=== PATIENT | male | born 1985 | race Caucasian/White ===

== ENCOUNTER → 2017-10-14 | Outpatient (CLI) | payer MEDICAID ==
[2017-10-14 11:21] LABS: ALT 70 U/L (21-72); AST 32 U/L (17-59); Albumin 4.8 g/dL (3.5-5.0); Alkaline Phosphatase 92 U/L (38-126); Anion Gap 15 mmol/L; Blood Urea Nitrogen 16 mg/dL (9-20); Calcium 10.2 mg/dL (8.4-10.2); Carbon Dioxide 30 mmol/L (22-30); Chloride 101 mmol/L (98-107); Cholesterol 188 mg/dL (<200); Glucose 107 mg/dL (74-99); HDL Cholesterol 42 mg/dL (40-60); LDL Cholesterol,Calculated 120 mg/dL (0-99); Potassium 4.7 mmol/L (3.5-5.1); Sodium 146 mmol/L (137-145); Total Bilirubin 0.4 mg/dL (0.2-1.3); Total Protein 7.5 g/dL (6.3-8.2); Triglycerides 130 mg/dL (<150)
--- NOTE | 2017-10-14 13:20 | ECHOF ---
Referral Reason:R07.89 other chest pain MEASUREMENTS -------- HEIGHT: 185.4 cm WEIGHT: 129.3 kg BP: 147/90 RVIDd: 3.3 cm (< 3.3) IVSd: 1.2 cm (0.6 - 1.1) LVIDd: 5.5 cm (3.9 - 5.3) LVPWd: 1.2 cm (0.6 - 1.1) IVSs: 1.7 cm LVIDs: 3.1 cm LVPWs: 1.7 cm LAESV Index (A-L): 21.83 ml/m Ao Diam: 3.4 cm (2.0 - 3.7) AV Cusp: 2.5 cm (1.5 - 2.6) LA Diam: 3.1 cm (2.7 - 3.8) EPSS: 0.7 cm MV E Ramon: 0.83 m/s MV DecT: 188 ms MV A Ramon: 0.73 m/s MV E/A Ratio: 1.14 RAP: 5.00 mmHg RVSP: 24.52 mmHg MV EF SLOPE: 60.03 mm/s (70 - 150) MV EXCURSION: 2.08 cm (> 18.000) FINDINGS -------- Sinus rhythm. This was a technically adequate study. The left ventricular size is normal. There is mild concentric left ventricular hypertrophy. Overa ll left ventricular systolic function is normal with, an EF between 65 - 70 %. The right ventricle is mildly enlarged. Normal LA size by volume 22+/-6 ml/m2. The right atrium is normal in size. Aortic valve is trileaflet and is mildly thickened. There is no evidence of aortic regurgitation. There is no evidence of aortic stenosis. The mitral valve leaflets are mildly thickened. There is trace to mild mitral regurgitation. Trace tricuspid regurgitation present. Right ventricular systolic pressure is normal at < 35 mmHg. There is no evidence of pulmonary hypertension. The pulmonic valve is normal. The aortic root size is normal. Normal inferior vena cava with normal inspiratory collapse consistent with estimated right atrial pre ssure of 5 mmHg. There is no pericardial effusion. CONCLUSIONS -------- 1. Sinus rhythm. 2. This was a technically adequate study. 3. The left ventricular size is normal. 4. There is mild concentric left ventricular hypertrophy. 5. Overall left ventricular systolic function is normal with, an EF between 65 - 70 %. 6. The right ventricle is mildly enlarged. 7. Normal LA size by volume 22+/-6 ml/m2. 8. Aortic valve is trileaflet and is mildly thickened. 9. The mitral valve leaflets are mildly thickened. 10. There is trace to mild mitral regurgitation. 11. Trace tricuspid regurgitation present. 12. Right ventricular systolic pressure is normal at < 35 mmHg. 13. There is no evidence of pulmonary hypertension. 14. The aortic root size is normal. 15. There is no pericardial effusion. CLINICAL SAFETY SPECIALIST: Reggie Benz RDCS
--- NOTE | 2017-10-14 13:54 | ECHOS ---
STRESS ECHOCARDIOGRAM DATE OF SERVICE: 10/14/2017 INDICATIONS: Chest pain. MEDICATIONS: Amlodipine, losartan BASELINE HEART RATE: 89 BASELINE BLOOD PRESSURE: 147/90 MAXIMUM HEART RATE: 163 MAXIMUM BLOOD PRESSURE: 173/55 85% MPHR: 158 100% MPHR: 186 METS: 11.1 MAXIMUM STAGE REACHED: III TOTAL EXERCISE TIME: 9:31 CLINICAL INFORMATION: STRESS DATA: Pretesting physical examination showed a heart rate of 89, pressure is 147/90 mmHg. Baseline EKG showed sinus mechanism. The patient exercised on the treadmill according to Steven protocol for a total of 9 minutes and achieved 10 of METS with max heart rate was 163, which is about 87% of maximum predicted heart rate. Maximum blood pressure was 173/55 mmHg. Clinically, the patient did not have any symptoms of chest pain or discomfort during the testing or in the recovery. The EKG did not show any significant ST or T-wave abnormalities concerning for ischemia. ECHOCARDIOGRAM IMAGES: On echocardiogram images from parasternal long axis, parasternal short axis view, apical 4 chamber and apical 2 chamber view were obtained as the baseline images, at the peak heart rate, as well as on recovery. The echocardiogram images showed good augmentation in the left ventricular systolic function. CONCLUSION: 1. Excellent exercise tolerance. 2. Normal EKG in response to exercise. 3. Normal echocardiogram in response to exercise as well. MMODL / IJN: [id number] /
== END | disposition home or self-care (01) ==
LOC: RADNMMAIN 09:12
PROVIDERS: ATTEND Internal Medicine Interventional Cardiology
DX: R07.89 Other chest pain (principal); I10 Essential (primary) hypertension; Z88.0 Allergy status to penicillin
CPT/HCPCS: 93306; 93351; 80061; 80053; 36415; Q9950

== ENCOUNTER → 2017-11-22 | Outpatient (CLI) | payer MEDICAID ==
--- NOTE | 2017-11-22 16:36 | CONS ---
CONSULTATION REASON FOR CONSULTATION: Sleep apnea. A 32-year-old male patient [facility] due to concern for sleep apnea. The patient snores loud and he has been feeling fatigue and tired during the day. 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 He goes to bed around 11 p.m., wakes up 6:00 a.m. in the morning. He snores and he has excessive fatigue and sleepiness during the day. His current [place] score is 4. Does not fall asleep while driving. No ever been involved in a motor vehicle accidents because of feeling drowsy or sleepy. His weight is up in the order of 10 pounds over the past 1 year and a total of 30 pounds over the past 5 years. He prefers to sleep on his side. He cannot sleep on his back. He denies waking up choking or gasping for air. No restlessness lower extremities, no nightmares, no parasomnias noted. On weekends he goes to bed around 11 p.m., wakes up at 9 a.m. in the morning. He has been having increased blood pressure and he has been on 2 different antihypertensive medication for now known in the care of Dr. Hayden. No other complaints otherwise for now. PAST MEDICAL HISTORY: Hypertension, obesity. PAST SURGICAL HISTORY: Includes inguinal hernia repair bilaterally. DRUG ALLERGIES: PENICILLIN. OUTPATIENT MEDICATION LIST: Includes Norvasc 10 mg p.o. daily, losartan hydrochlorothiazide 1 tablet a day. SOCIAL HISTORY: Nonsmoker. No history of alcohol. No history of IV drugs. Drinks 3 cups of coffee and caffeinated soda either Pepsi or diet Coke every day. FAMILY HISTORY: Negative for sleep apnea. Yet there is a from early cardiovascular complication in his father who at age of 35 and grandfather at the age of 42 from CVA. REVIEW OF SYSTEMS: 12-point review of system was done. Positive findings are mentioned above in history of present illness. Of significance is the absence of any insomnia. No history of grinding. No history of sleepwalking. No dry mouth. No anxiety or panic attacks. No palpitation or heartburn. No restlessness lower extremities. No claustrophobia. No sexual dysfunction. No history of depression. No history of any memory deficits or concentration problems. PHYSICAL EXAMINATION: BP is 135/99, pulse 89, respirations 16, temp 98.1, saturation 96% on room air. Height is 6 foot 1, weight is 289, BMI 38.1. Neck size 18-1/2 inches. GENERAL APPEARANCE: Calm, comfortable. HEAD: Atraumatic, normocephalic. NECK: Supple. There is no JVD. No goiter or neck masses. Mallampati class IV. LUNGS: Clear to auscultation. HEART: Sounds regular rhythm. Normal S1, S2. No S3. No murmurs. ABDOMEN: Soft, nontender. No organomegaly. EXTREMITIES: No edema. No cyanosis or clubbing. NEUROLOGIC: Alert and oriented x3. There are no focal neurological deficits. PSYCHIATRIC: Negative for anxiety or depression. SKIN: Negative for any wounds or ulceration. IMPRESSION: 1. Loud snoring. 2. Chronic tiredness and fatigue and sleepiness. [place] score of 4. 3. Obesity with a BMI of 38.1. 4. Hypertension, currently on various antihypertensive medications with good pressure control. PLAN: 1. Encourage weight loss. 2. Implement good sleep hygiene measures. 3. Continues sleeping on side. 4. Proceed with a screening polysomnogram to look for any significant sleep apnea that needs to be further treated in the future. MMODL / IJN: [id number] /
== END | disposition home or self-care (01) ==
LOC: SLEEP 13:55
PROVIDERS: ATTEND Internal Medicine Critical Care Medicine
DX: R06.83 Snoring (principal); R53.83 Other fatigue; E66.9 Obesity, unspecified; I10 Essential (primary) hypertension; Z79.899 Other long term (current) drug therapy; Z68.38 Body mass index [BMI] 38.0-38.9, adult; Z88.0 Allergy status to penicillin
CPT/HCPCS: 99211

== ENCOUNTER → 2023-06-08 | Outpatient (CLI) | payer MEDICAID ==
[2023-06-08 17:00] LABS: ALT 46 U/L (4-49); AST 32 U/L (17-59); African American GFR (CKD) >90 (>60 ml/min/1.73 sqM); Albumin 4.6 g/dL (3.5-5.0); Albumin/Globulin Ratio 1.5; Alkaline Phosphatase 83 U/L (38-126); Anion Gap 9 mmol/L; Blood Urea Nitrogen 15 mg/dL (9-20); Calcium 9.7 mg/dL (8.4-10.2); Carbon Dioxide 27 mmol/L (22-30); Chloride 102 mmol/L (98-107); Globulin 3.1 g/dL; Glucose 161 mg/dL (74-99); Non-African American GFR(CKD) >90 (>60 ml/min/1.73 sqM); Potassium 4.4 mmol/L (3.5-5.1); Sodium 138 mmol/L (137-145); Total Bilirubin 0.5 mg/dL (0.2-1.3); Total Protein 7.7 g/dL (6.3-8.2)
[2023-06-08 19:54] LABS: Basophils # (A) 0.06 X 10*3/uL (0.00-0.10); Basophils % (A) 0.6 %; Eosinophils % (A) 2.1 %; HCT 46.4 % (39.6-50.0); HGB 14.9 g/dL (13.0-17.0); Lymphocytes # (A) 2.34 X 10*3/uL (0.90-5.00); Lymphocytes % (A) 24.7 %; MCH 29.2 pg (27.0-32.0); MCHC 32.1 g/dL (32.0-37.0); MCV 90.8 FL (80.0-97.0); Mean Platelet Volume 11.3 FL (9.5-12.2); Monocytes # (A) 0.79 X 10*3/uL (0.20-1.00); Monocytes % (A) 8.4 %; NRBC Per 100 WBC 0 X 10*3/uL (0.00-0.01); Neutrophils # (A) 6.02 X 10*3/uL (1.80-7.70); Neutrophils % (A) 63.7 %; Platelet Count 244 X 10*3/uL (140-440); RBC 5.11 X 10*6/uL (4.40-5.60); RDW 12.5 % (11.5-14.5); WBC 9.46 X 10*3/uL (4.50-10.00)
== END | disposition home or self-care (01) ==
LOC: LABWHC1 15:05
PROVIDERS: ATTEND Family Medicine
DX: Z00.00 Encounter for general adult medical examination without abnormal findings (principal); I10 Essential (primary) hypertension; E55.9 Vitamin D deficiency, unspecified
CPT/HCPCS: 36415; 80053; 82306; 82465; 84478; 85025

== ENCOUNTER 2024-02-20 13:25 | Inpatient (IN) | payer MEDICAID ==
[2024-02-20 14:06] LABS: Basophils % (A) 0 %; Eosinophils % (A) 0 %; HCT 43.9 % (39.0-53.0); HGB 14.5 gm/dL (13.0-17.5); Lymphocytes # (A) 1.5 k/uL (1.0-4.8); Lymphocytes % (A) 9 %; MCH 29.9 pg (25.0-35.0); MCHC 32.9 g/dL (31.0-37.0); MCV 90.9 fL (80.0-100.0); Mean Platelet Volume 8.5; Monocytes # (A) 0.7 k/uL (0-1.0); Monocytes % (A) 4 %; Neutrophils # (A) 13.8 k/uL (1.3-7.7); Neutrophils % (A) 85 %; Platelet Count 281 k/uL (150-450); RBC 4.84 m/uL (4.30-5.90); RDW 12.7 % (11.5-15.5); WBC 16.2 k/uL (3.8-10.6)
[2024-02-20 14:16] LABS: ALT 59 U/L (4-49); AST 27 U/L (17-59); African American GFR (CKD) >90 (>60 ml/min/1.73 sqM); Albumin 4.8 g/dL (3.5-5.0); Alkaline Phosphatase 77 U/L (38-126); Anion Gap 12 mmol/L; Blood Urea Nitrogen 22 mg/dL (9-20); Calcium 9.9 mg/dL (8.4-10.2); Carbon Dioxide 26 mmol/L (22-30); Chloride 97 mmol/L (98-107); Glucose 302 mg/dL (74-99); Lipase 59 U/L (23-300); Magnesium 2.2 mg/dL (1.6-2.3); Non-African American GFR(CKD) 90 (>60 ml/min/1.73 sqM); Potassium 4.5 mmol/L (3.5-5.1); Sodium 135 mmol/L (137-145); Total Bilirubin 0.5 mg/dL (0.2-1.3); Total Protein 7.7 g/dL (6.3-8.2)
[2024-02-20 14:24] LABS: Prothrombin Time 10.8 sec (10.0-12.5)
--- NOTE | 2024-02-20 15:44 | XR ---
EXAMINATION TYPE: XR chest 2V DATE OF EXAM: 02/20/2024 2:21 PM COMPARISON: Chest radiographs from 11/19/2013 TECHNIQUE: XR chest 2V Frontal and lateral views of the chest. CLINICAL INDICATION:Male, 38 years old with history of Chest Pain; FINDINGS: Lungs/Pleura: There is no evidence of pleural effusion, focal consolidation, or pneumothorax. Pulmonary vascularity: Unremarkable. Heart/mediastinum: Cardiomediastinal silhouette is unremarkable. Musculoskeletal: No acute osseous pathology. IMPRESSION: No acute cardiopulmonary disease/process. [facility], , 02/20/2024 3:41 PM
--- NOTE | 2024-02-20 16:22 | ED ---
General Adult HPI - General Chief complaint: Chest Pain Stated complaint: Chest Pain,Hypertension Time Seen by Provider: 02/20/24 13:39 Source: patient Mode of arrival: ambulatory Limitations: no limitations - History of Present Illness Initial comments: 38-year-old male presents the emergency department reporting chest pain, nausea and shortness of breath. He was at work ambulating down the halls when he had a perez of nausea, shortness of breath and tightness in his chest. He felt like he was going to pass out if he did not sit down. He does admit to a recent upper respiratory infection. He denies having history of cardiac disease. He is over weight with a history of hypertension. States that previously he was not compliant with his blood pressure medications but he is now. He denies diabetes. Chest pain has improved at this time. He denies calf pain or swelling. No history of DVT or PE. He has never had a cardiac workup. Denies fevers. No other alleviating, precipitating or modifying factors - Related Data Home Medications Medication Instructions Recorded Confirmed Promethazine/Dextromethorphan 5 ml PO Q4H PRN 02/20/24 02/20/24 [Promethazine-Dm 6.25-15 mg/5Ml] Triamterene/Hydrochlorothiazid 1 tab PO DAILY 02/20/24 02/20/24 [Triamterene-Hctz 37.5-25 mg Tb] Previous Rx's Medication Instructions Recorded amLODIPine [Norvasc] 10 mg PO DAILY #30 tab 02/21/24 metFORMIN HCL [Glucophage] 500 mg PO BID #60 tab 02/21/24 Aspirin 81 mg PO DAILY #30 tab 02/23/24 Atorvastatin [Lipitor] 40 mg PO HS #30 tab 02/23/24 Isosorbide Mononitrate ER [Imdur] 30 mg PO DAILY #30 tab 02/23/24 Losartan [Cozaar] 50 mg PO BID #60 tab 02/23/24 Metoprolol Succinate (ER) [Toprol 50 mg PO DAILY #30 tab 02/23/24 XL] Allergies Allergy/AdvReac Type Severity Reaction Status Date / Time Penicillins Allergy Unknown Verified 02/20/24 16:25 Childhood Review of Systems ROS Statement: Those systems with pertinent positive or pertinent negative responses have been documented in the HPI. ROS Other: All systems not noted in ROS Statement are negative. Past Medical History Past Medical History: Asthma, Hypertension Additional Past Medical History / Comment(s): BRONCHITIS History of Any Multi-Drug Resistant Organisms: None Reported Past Surgical History: Hernia Repair Past Psychological History: No Psychological Hx Reported Past Alcohol Use History: Occasional Past Drug Use History: None Reported - Past Family History Father Family Medical History: Congestive Heart Failure (CHF) Additional Family Medical History / Comment(s): at 36 uncertain cause, caridac complication related General Exam Limitations: no limitations General appearance: alert, other (Fatigued) Head exam: Present: atraumatic, normocephalic, normal inspection Eye exam: Present: normal appearance, PERRL, EOMI. Absent: scleral icterus, conjunctival injection, periorbital swelling ENT exam: Present: normal exam, mucous membranes moist Neck exam: Present: normal inspection. Absent: tenderness, meningismus, lymphadenopathy Respiratory exam: Present: normal lung sounds bilaterally. Absent: respiratory distress, wheezes, rales, rhonchi, stridor Cardiovascular Exam: Present: normal rhythm, tachycardia, normal heart sounds. Absent: systolic murmur, diastolic murmur, rubs, gallop, clicks GI/Abdominal exam: Present: soft, normal bowel sounds. Absent: distended, tenderness, guarding, rebound, rigid Extremities exam: Present: normal inspection, full ROM, normal capillary refill. Absent: tenderness, pedal edema, joint swelling, calf tenderness Back exam: Present: normal inspection Neurological exam: Present: alert, oriented X3, CN II-XII intact Psychiatric exam: Present: normal affect, normal mood Skin exam: Present: warm, dry, intact, normal color. Absent: rash Course Vital Signs 02/20/24 02/20/24 02/20/24 13:32 15:18 17:10 Temperature 97.8 F Pulse Rate 109 H 99 89 Respiratory 20 20 18 Rate Blood Pressure 205/124 153/102 159/95 O2 Sat by Pulse 98 98 97 Oximetry 02/20/24 02/20/24 20:34 21:03 Temperature Pulse Rate 100 101 H Respiratory 19 20 Rate Blood Pressure 164/111 166/99 O2 Sat by Pulse 96 95 Oximetry Medical Decision Making - Medical Decision Making Was pt. sent in by a medical professional or institution (, PA, [employer]MER, urgent care, hospital, or penitentiary...) When possible be specific @ -No Did you speak to anyone other than the patient for history (EMS, parent, family, police, friend...)? What history was obtained from this source @ -Spoke with the for history Did you review nursing and triage notes (agree or disagree)? Why? @ -I reviewed and agree with nursing and triage notes Were old charts reviewed (outside hosp., previous admission, EMS record, old EKG, old radiological studies, urgent care reports/EKG's, penitentiary records)? Report findings @ -No old charts were reviewed Differential Diagnosis (chest pain, altered mental status, abdominal pain women, abdominal pain men, vaginal bleeding, weakness, fever, dyspnea, syncope, headache, dizziness, GI bleed, back pain, seizure, CVA, palpatations, mental health, musculoskeletal)? @ -Differential Chest Pain: Stable Angina, Unstable Angina, STEMI, NSTEMI Aortic Dissection, Pneumothorax, Musculoskeletal, Esophageal Spasm GERD, Cholecystitis, Pancreatitis, Zoster, this is not meant to be an all-inclusive list. EKG interpreted by me (3pts min.). @ -Yes and demonstrates sinus tachycardia with a rate of 101. SD interval 125. QRS 105. QTc of 420. Q wave in lead III with inverted T wave. No ST elevation X-rays interpreted by me (1pt min.). @ -Yes and demonstrates no acute process CT interpreted by me (1pt min.). @ -None done U/S interpreted by me (1pt. min.). @ -None done What testing was considered but not performed or refused? (CT, X-rays, U/S, labs)? Why? @ -None What meds were considered but not given or refused? Why? @ -None Did you discuss the management of the patient with other professionals (professionals i.e. , PA, [employer]MER, lab, RT, psych nurse, social and political studies professor, banquet captain, teacher, naval gunfire liaison officer, counter caser)? Give summary @ -Spoke with Melony from [facility] Was smoking cessation discussed for >3mins.? @ -No Was critical care preformed (if so, how long)? @ -No Were there social determinants of health that impacted care today? How? (H omelessness, low income, unemployed, alcoholism, drug addiction, transportation, low edu. Level, literacy, decrease access to med. care, long term, rehab)? @ -No Was there de-escalation of care discussed even if they declined (Discuss DNR or withdrawal of care, Hospice)? DNR status @ -No What co-morbidities impacted this encounter? (DM, HTN, Smoking, COPD, CAD, Cancer, CVA, ARF, Chemo, Hep., AIDS, mental health diagnosis, sleep apnea, morbid obesity)? @ -Hypertension, obesity Was patient admitted / discharged? Hospital course, mention meds given and route, prescriptions, significant lab abnormalities, going to OR and other pertinent info. @ -Upon arrival patient seen and evaluated in room 5. Thorough history and physical exam was performed. IV access was established. Laboratory studies w ere conducted. EKG was performed. Chest x-ray was performed. Results are discussed with the patient. Patient does have several risk factors including possible diabetes which would be a new diagnosis. I did recommend admission for cardiology consultation. Patient was agreeable to this. I called and spoke with Melony from [facility] for admission Undiagnosed new problem with uncertain prognosis? @ -No Drug Therapy requiring intensive monitoring for toxicity (Heparin, Nitro, Insulin, Cardizem)? @ -No Were any procedures done? @ -No Diagnosis/symptom? @ -Acute chest pain, hyperglycemia Acute, or Chronic, or Acute on Chronic? @ -Acute Uncomplicated (without systemic symptoms) or Complicated (systemic symptoms)? @ -Complicated Side effects of treatment? @ -No Exacerbation, Progression, or Severe Exacerbation? @ -No Poses a threat to life or bodily function? How? (Chest pain, [place], AR, pneumonia, PE, COPD, DKA, ARF, appy, cholecystitis, CVA, Diverticulitis, Homicidal, Suicidal, threat to staff... and all critical care pts) @ -Yes this patient symptoms may represent ACS - Lab Data Result diagrams: 02/21/24 04:30 02/21/24 04:30 Lab Results 02/20/24 02/20/24 02/20/24 Range/Units 13:59 13:59 13:59 WBC 16.2 H (3.8-10.6) k/uL RBC 4.84 (4.30-5.90) m/uL Hgb 14.5 (13.0-17.5) gm/dL Hct 43.9 (39.0-53.0) % MCV 90.9 (80.0-100.0) fL MCH 29.9 (25.0-35.0) pg MCHC 32.9 (31.0-37.0) g/dL RDW 12.7 (11.5-15.5) % Plt Count 281 (150-450) k/uL MPV 8.5 Neutrophils % 85 % Lymphocytes % 9 % Monocytes % 4 % Eosinophils % 0 % Basophils % 0 % Neutrophils # 13.8 H (1.3-7.7) k/uL Lymphocytes # 1.5 (1.0-4.8) k/uL Monocytes # 0.7 (0-1.0) k/uL Eosinophils # 0.0 (0-0.7) k/uL Basophils # 0.0 (0-0.2) k/uL PT 10.8 (10.0-12.5) sec INR 1.0 (<1.2) APTT 26.0 (22.0-30.0) sec D-Dimer (<0.60) mg/L FEU Sodium 135 L (137-145) mmol/L Potassium 4.5 (3.5-5.1) mmol/L Chloride 97 L (98-107) mmol/L Carbon Dioxide 26 (22-30) mmol/L Anion Gap 12 mmol/L BUN 22 H (9-20) mg/dL Creatinine 1.04 (0.66-1.25) mg/dL Est GFR (CKD-EPI)AfAm >90 (>60 ml/min/1.73 sqM) Est GFR (CKD-EPI)NonAf 90 (>60 ml/min/1.73 sqM) Glucose 302 H (74-99) mg/dL Estimated Ave Glu mg/dL mg/dL Hemoglobin A1c (<=6.0) % Calcium 9.9 (8.4-10.2) mg/dL Magnesium 2.2 (1.6-2.3) mg/dL Total Bilirubin 0.5 (0.2-1.3) mg/dL AST 27 (17-59) U/L ALT 59 H (4-49) U/L Alkaline Phosphatase 77 (38-126) U/L Troponin I (0.000-0.034) ng/mL Total Protein 7.7 (6.3-8.2) g/dL Albumin 4.8 (3.5-5.0) g/dL Triglycerides (0.00-149.00) mg/dL Cholesterol (0.00-200.00) mg/dL LDL Cholesterol, Calc (0.0-131.0) mg/dL VLDL Cholesterol, Calc (5.00-40.00) mg/dL HDL Cholesterol (40.00-60.00) mg/dL Cholesterol/HDL Ratio Ratio Lipase 59 (23-300) U/L Influenza Type A (PCR) (Not Detectd) Influenza Type B (PCR) (Not Detectd) RSV (PCR) (Not Detectd) SARS-CoV-2 (PCR) (Not Detectd) 02/20/24 02/20/24 02/20/24 Range/Units 13:59 13:59 13:59 WBC (3.8-10.6) k/uL RBC (4.30-5.90) m/uL Hgb (13.0-17.5) gm/dL Hct (39.0-53.0) % MCV (80.0-100.0) fL MCH (25.0-35.0) pg MCHC (31.0-37.0) g/dL RDW (11.5-15.5) % Plt Count (150-450) k/uL MPV Neutrophils % % Lymphocytes % % Monocytes % % Eosinophils % % Basophils % % Neutrophils # (1.3-7.7) k/uL Lymphocytes # (1.0-4.8) k/uL Monocytes # (0-1.0) k/uL Eosinophils # (0-0.7) k/uL Basophils # (0-0.2) k/uL PT (10.0-12.5) sec INR (<1.2) APTT (22.0-30.0) sec D-Dimer 0.30 (<0.60) mg/L FEU Sodium (137-145) mmol/L Potassium (3.5-5.1) mmol/L Chloride (98-107) mmol/L Carbon Dioxide (22-30) mmol/L Anion Gap mmol/L BUN (9-20) mg/dL Creatinine (0.66-1.25) mg/dL Est GFR (CKD-EPI)AfAm (>60 ml/min/1.73 sqM) Est GFR (CKD-EPI)NonAf (>60 ml/min/1.73 sqM) Glucose (74-99) mg/dL Estimated Ave Glu mg/dL 200 mg/dL Hemoglobin A1c 8.6 H (<=6.0) % Calcium (8.4-10.2) mg/dL Magnesium (1.6-2.3) mg/dL Total Bilirubin (0.2-1.3) mg/dL AST (17-59) U/L ALT (4-49) U/L Alkaline Phosphatase (38-126) U/L Troponin I <0.012 (0.000-0.034) ng/mL Total Protein (6.3-8.2) g/dL Albumin (3.5-5.0) g/dL Triglycerides (0.00-149.00) mg/dL Cholesterol (0.00-200.00) mg/dL LDL Cholesterol, Calc (0.0-131.0) mg/dL VLDL Cholesterol, Calc (5.00-40.00) mg/dL HDL Cholesterol (40.00-60.00) mg/dL Cholesterol/HDL Ratio Ratio Lipase (23-300) U/L Influenza Type A (PCR) (Not Detectd) Influenza Type B (PCR) (Not Detectd) RSV (PCR) (Not Detectd) SARS-CoV-2 (PCR) (Not Detectd) 02/20/24 02/20/24 Range/Units 13:59 14:26 WBC (3.8-10.6) k/uL RBC (4.30-5.90) m/uL Hgb (13.0-17.5) gm/dL Hct (39.0-53.0) % MCV (80.0-100.0) fL MCH (25.0-35.0) pg MCHC (31.0-37.0) g/dL RDW (11.5-15.5) % Plt Count (150-450) k/uL MPV Neutrophils % % Lymphocytes % % Monocytes % % Eosinophils % % Basophils % % Neutrophils # (1.3-7.7) k/uL Lymphocytes # (1.0-4.8) k/uL Monocytes # (0-1.0) k/uL Eosinophils # (0-0.7) k/uL Basophils # (0-0.2) k/uL PT (10.0-12.5) sec INR (<1.2) APTT (22.0-30.0) sec D-Dimer (<0.60) mg/L FEU Sodium (137-145) mmol/L Potassium (3.5-5.1) mmol/L Chloride (98-107) mmol/L Carbon Dioxide (22-30) mmol/L Anion Gap mmol/L BUN (9-20) mg/dL Creatinine (0.66-1.25) mg/dL Est GFR (CKD-EPI)AfAm (>60 ml/min/1.73 sqM) Est GFR (CKD-EPI)NonAf (>60 ml/min/1.73 sqM) Glucose (74-99) mg/dL Estimated Ave Glu mg/dL mg/dL Hemoglobin A1c (<=6.0) % Calcium (8.4-10.2) mg/dL Magnesium (1.6-2.3) mg/dL Total Bilirubin (0.2-1.3) mg/dL AST (17-59) U/L ALT (4-49) U/L Alkaline Phosphatase (38-126) U/L Troponin I (0.000-0.034) ng/mL Total Protein (6.3-8.2) g/dL Albumin (3.5-5.0) g/dL Triglycerides 101.00 (0.00-149.00) mg/dL Cholesterol 208.00 H (0.00-200.00) mg/dL LDL Cholesterol, Calc 144.7 H (0.0-131.0) mg/dL VLDL Cholesterol, Calc 20.20 (5.00-40.00) mg/dL HDL Cholesterol 43.10 (40.00-60.00) mg/dL Cholesterol/HDL Ratio 4.83 Ratio Lipase (23-300) U/L Influenza Type A (PCR) Not Detected (Not Detectd) Influenza Type B (PCR) Not Detected (Not Detectd) RSV (PCR) Not Detected (Not Detectd) SARS-CoV-2 (PCR) Not Detected (Not Detectd) Disposition Clinical Impression: Chest pain, Hypertension, Cough, Hyperglycemia Disposition: ADMITTED IP TO THIS HOSP Condition: Stable Is patient prescribed a controlled substance at d/c from ED?: No Time of Disposition: 16:27 Decision to Admit Reason: Admit from EC Decision Date: 02/20/24 Decision Time: 16:27
[2024-02-20] MEDS ORDERED: ONDANSETRON 4 MG/2 ML VIAL IVP PRN (16:28)
[2024-02-20] MEDS ORDERED: ACETAMINOPHEN TAB 325 MG TAB PO PRN (16:28)
[2024-02-20] MEDS ORDERED: NALOXONE 0.4 MG/ML 1 ML VIAL IV PRN (16:28)
[2024-02-20] MEDS ORDERED: DEXTROSE 50% SYRINGE 50 ML IVP PRN ×2 (16:37)
[2024-02-20] MEDS: ASPIRIN 81 MG PO STA (16:47)
[2024-02-20] MEDS: SODIUM CHLORIDE 0.9% 1,000 ML IV SCH (16:47)
[2024-02-20] MEDS: INSULIN ASPART (NovoLOG) 100 UNIT/ML VIAL SQ SCH (17:09)
[2024-02-20] MEDS: IPRATROPIUM-ALBUTEROL 3 ML NEB INHALATION SCH (20:56)
[2024-02-20] MEDS: predniSONE 20 MG TAB PO SCH (23:16)
[2024-02-20] MEDS: LOSARTAN 50 MG TAB PO SCH (23:16)
[2024-02-20] MEDS: guaiFENesin-DM 100-10MG/5ML 10 ML CUP PO PRN (23:23)
[2024-02-21] MEDS ORDERED: IPRATROPIUM-ALBUTEROL 3 ML NEB INHALATION PRN (00:23)
[2024-02-21 08:35] LABS: Basophils # (A) 0.04 X 10*3/uL (0.00-0.10); Basophils % (A) 0.3 %; Eosinophils # (A) 0.02 X 10*3/uL (0.04-0.35); Eosinophils % (A) 0.1 %; HCT 42.9 % (39.6-50.0); HGB 14.2 g/dL (13.0-17.0); Lymphocytes # (A) 1.78 X 10*3/uL (0.90-5.00); Lymphocytes % (A) 13.3 %; MCH 29.8 pg (27.0-32.0); MCHC 33.1 g/dL (32.0-37.0); MCV 90.1 FL (80.0-97.0); Mean Platelet Volume 11.6 FL (9.5-12.2); Monocytes # (A) 0.75 X 10*3/uL (0.20-1.00); Monocytes % (A) 5.6 %; NRBC Per 100 WBC 0 X 10*3/uL (0.00-0.01); Neutrophils # (A) 10.74 X 10*3/uL (1.80-7.70); Platelet Count 267 X 10*3/uL (140-440); RBC 4.76 X 10*6/uL (4.40-5.60); RDW 12.6 % (11.5-14.5); WBC 13.42 X 10*3/uL (4.50-10.00)
[2024-02-21 08:45] LABS: ALT 55 U/L (10-49); AST 24 U/L (14-35); Albumin 4.4 g/dL (3.8-4.9); Albumin/Globulin Ratio 1.69 Ratio (1.60-3.17); Alkaline Phosphatase 93 U/L (41-126); Blood Urea Nitrogen 20.1 mg/dL (9.0-27.0); Calcium 9.6 mg/dL (8.7-10.3); Carbon Dioxide 27.1 mmol/L (21.6-31.8); Chloride 97 mmol/L (96-109); Globulin 2.6 g/dL (1.6-3.3); Glucose 281 mg/dL (70-110); Potassium 4.9 mmol/L (3.5-5.5); Sodium 135 mmol/L (135-145); Total Bilirubin 0.3 mg/dL (0.3-1.2)
[2024-02-21] MEDS: IPRATROPIUM-ALBUTEROL 3 ML NEB INHALATION SCH (09:44)
[2024-02-21] MEDS: amLODIPine 10 MG TAB PO SCH (09:46)
[2024-02-21] MEDS: TRIAMTERENE-HCTZ 37.5-25MG 1 EACH CAP PO SCH (09:46)
--- NOTE | 2024-02-21 09:50 | P.CRDCN ---
History of Present Illness Consult date: 02/21/24 Consult reason: chest pain History of present illness: This is a 38-year-old male patient with past medical history of hypertension, asthma. We have been asked to evaluate the patient for chest pain. Patient presented to the hospital due to chest pain, palpitations, dizziness and in general just not feeling well. Patient presented with blood pressure of 205/124. Last evening, patient only received losartan 50 mg. Blood pressure 159/118, heart rate 81, pulse ox 94% on room air. EKG: Sinus tachycardia 101 bpm Chest x-ray: No acute process Laboratory studies: WBC initially 16.2 now 13.4, hemoglobin 14.2. Electrolytes and renal function are normal. Glucose 302. Troponins negative x 3. Influenza A, influenza B, RSV, COVID-19 not detected. Home cardiac medications: Review Of Systems: At the time of my exam: CONSTITUTIONAL: Denies fever or chills. Not feeling well, dizziness HEENT: Denies blurred vision, vision changes, or eye pain. Denies hemoptysis CARDIOVASCULAR: Denies chest pain. Denies orthopnea. Denies PND. Denies pa lpitations RESPIRATORY: Denies shortness of breath. GASTROINTESTINAL: Denies abdominal pain. Denies nausea or vomiting. HEMATOLOGIC: Denies bleeding disorders. GENITOURINARY: Denies any blood in urine. SKIN: Denies puritis. Denies rash. Physical examination: Gen: This is a 38-year-old male in no acute distress VS: reviewed HEENT: Head is atraumatic, normocephalic. Pupils equal, round. Sclerae is anicteric. NECK: Supple. No JVD. LUNGS: Clear to auscultation. No wheezes or rhonchi. No intercostal retractions. HEART: Regular rate and rhythm. No murmur. ABDOMEN: Soft No tenderness. EXTREMITIES: No pedal edema. No calf tenderness. NEUROLOGICAL: Patient is awake, alert and oriented x3. Assessment: Atypical chest pain, acute coronary syndrome ruled out Chest pain, dizziness possibly due to uncontrolled hypertension Uncontrolled hypertension Diabetes new diagnosis Plan: Resume patient's home cardiac medications to be given now Start patient on amlodipine 10 mg daily Obtain stress echocardiogram once blood pressure is controlled Obtain 2-D echocardiogram and Doppler study to assess cardiac structure and function Monitor blood pressure closely Further recommendations to follow based upon clinical course Thank you kindly for this consultation. Nurse practitioner note has been reviewed, I agree with documented findings and plan of care. Patient was seen and examined. Past Medical History Past Medical History: Asthma, Hypertension Additional Past Medical History / Comment(s): BRONCHITIS History of Any Multi-Drug Resistant Organisms: None Reported Past Surgical History: Hernia Repair Past Anesthesia/Blood Transfusion Reactions: No Reported Reaction Past Psychological History: No Psychological Hx Reported Smoking Status: Never smoker Past Alcohol Use History: Occasional Past Drug Use History: None Reported - Past Family History Father Family Medical History: Congestive Heart Failure (CHF) Additional Family Medical History / Comment(s): at 36 uncertain cause, caridac complication related Medications and Allergies Home Medications Medication Instructions Recorded Confirmed Type Irbesartan [Avapro] 150 mg PO BID 02/20/24 02/20/24 History Promethazine/Dextromethorphan 5 ml PO Q4H PRN 02/20/24 02/20/24 History [Promethazine-Dm Syrup] Triamterene/Hydrochlorothiazid 1 tab PO DAILY 02/20/24 02/20/24 History [Triamterene-Hctz 37.5-25 mg Tb] predniSONE 40 mg PO DAILY 02/20/24 02/20/24 History Allergies Allergy/AdvReac Type Severity Reaction Status Date / Time Penicillins Allergy Unknown Verified 02/20/24 16:25 Childhood Physical Exam Vitals: Vital Signs Temp Pulse Pulse Resp BP BP Pulse Ox 02/21/24 07:00 97.6 F 81 17 158/93 94 L 02/21/24 01:57 88 02/21/24 01:09 97.4 F L 87 18 179/110 95 02/20/24 21:51 97.9 F 96 18 159/95 94 L 02/20/24 21:03 101 H 20 166/99 95 02/20/24 20:34 100 19 164/111 96 02/20/24 17:10 89 18 159/95 97 02/20/24 15:18 99 20 153/102 98 02/20/24 13:32 97.8 F 109 H 20 205/124 98 Intake and Output 02/20/24 02/21/24 02/21/24 22:59 06:59 14:59 Intake Total 240 480 Balance 240 480 Intake: Oral 240 480 Other: # Voids 1 3 Weight 129.274 kg Results 02/21/24 04:30 02/21/24 04:30 Cardiac Enzymes 02/20/24 02/20/24 02/20/24 Range/Units 13:59 13:59 18:07 AST 27 (17-59) U/L Troponin I <0.012 <0.012 (0.000-0.034) ng/mL 02/20/24 Range/Units 20:38 AST (17-59) U/L Troponin I 0.021 (0.000-0.034) ng/mL Coagulation 02/20/24 Range/Units 13:59 PT 10.8 (10.0-12.5) sec APTT 26.0 (22.0-30.0) sec CBC 02/20/24 Range/Units 13:59 WBC 16.2 H (3.8-10.6) k/uL RBC 4.84 (4.30-5.90) m/uL Hgb 14.5 (13.0-17.5) gm/dL Hct 43.9 (39.0-53.0) % Plt Count 281 (150-450) k/uL Comprehensive Metabolic Panel 02/20/24 Range/Units 13:59 Sodium 135 L (137-145) mmol/L Potassium 4.5 (3.5-5.1) mmol/L Chloride 97 L (98-107) mmol/L Carbon Dioxide 26 (22-30) mmol/L BUN 22 H (9-20) mg/dL Creatinine 1.04 (0.66-1.25) mg/dL Glucose 302 H (74-99) mg/dL Calcium 9.9 (8.4-10.2) mg/dL AST 27 (17-59) U/L ALT 59 H (4-49) U/L Alkaline Phosphatase 77 (38-126) U/L Total Protein 7.7 (6.3-8.2) g/dL Albumin 4.8 (3.5-5.0) g/dL Current Medications Generic Name Dose Route Start Last Admin Trade Name Freq PRN Reason Stop Dose Admin Acetaminophen 650 mg 02/20/24 16:28 Acetaminophen Tab 325 Mg Tab PO Q6HR PRN Mild Pain or Fever > 100.5 Albuterol/Ipratropium 3 ml 02/21/24 08:00 Ipratropium-Albuterol 3 Ml Neb INHALATION RT-QID CORNEL Albuterol/Ipratropium 3 ml 02/21/24 00:23 Ipratropium-Albuterol 3 Ml Neb INHALATION RT-QID PRN Shortness Of Breath Or Wheezing Dextrose/Water 25 ml 02/20/24 16:37 Dextrose 50% Syringe 50 Ml IVP PER PROTOCOL PRN Hypoglycemia Protocol Dextrose/Water 50 ml 02/20/24 16:37 Dextrose 50% Syringe 50 Ml IVP PER PROTOCOL PRN Hypoglycemia Protocol Guaifenesin/Dextromethorphan 10 ml 02/20/24 18:19 02/20/24 23:23 Guaifenesin-Dm 100-10mg/5ml 10 Ml Cup PO 10 ml Q6HR PRN Administration Cough Sodium Chloride 1,000 mls @ 75 mls/hr 02/20/24 16:30 02/21/24 06:23 Saline 0.9% IV Not Given .[id number] CORNEL Insulin Aspart 0 unit 02/20/24 17:30 02/21/24 06:27 Insulin Aspart (Novolog) 100 Unit/Ml Vial SQ 6 unit ACHS CORNEL Administration Protocol Losartan Potassium 50 mg 02/20/24 21:15 02/20/24 23:16 Losartan 50 Mg Tab PO 50 mg BID CORNEL Administration Naloxone HCl 0.2 mg 02/20/24 16:28 Naloxone 0.4 Mg/Ml 1 Ml Vial IV Q2M PRN Opioid Reversal Ondansetron HCl 4 mg 02/20/24 16:28 Ondansetron 4 Mg/2 Ml Vial IVP Q8HR PRN Nausea And Vomiting Prednisone 20 mg 02/20/24 21:00 02/20/24 23:16 Prednisone 20 Mg Tab PO 20 mg BID CORNEL Administration Triamterene/Hydrochlorothiazide 1 each 02/21/24 09:00 Triamterene-Hctz 37.5-25mg 1 Each Cap PO DAILY CORNEL Intake and Output 02/20/24 02/21/24 02/21/24 22:59 06:59 14:59 Intake Total 240 480 Balance 240 480 Intake: Oral 240 480 Other: # Voids 1 3 Weight 129.274 kg 02/20/24 13:59 02/20/24 13:59
--- NOTE | 2024-02-21 10:23 | CA ---
Transthoracic Echo Report Name: Quinten Francis Age: 38 Gender: M : 1985 Exam Date: 02/21/2024 09:27 Exam Location: [place] [facility] Ht (in): 73 Wt (lb): 285 Ordering Physician: Antonietta Betts Attending/Referring Phys: [id number], Roxane Loom Setter Fourdrinier Kizzy Ivey, CHRIS Procedure CPT: Indications: LVF Cardiac Hx: Technical Quality: Technically difficult study Contrast 1: Definity Total Dose (mL): 2 Contrast 2: Total Dose (mL): MEASUREMENTS (Male / Female) Normal Values 2D ECHO LV Diastolic Diameter PLAX 4.3 cm 4.2 - 5.9 / 3.9 - 5.3 cm LV Systolic Diameter PLAX 3.2 cm IVS Diastolic Thickness 1.6 cm 0.6 - 1.0 / 0.6 - 0.9 cm LVPW Diastolic Thickness 1.4 cm 0.6 - 1.0 / 0.6 - 0.9 cm LV Relative Wall Thickness 0.7 RV Internal Dim ED PLAX 3.6 cm LA Systolic Diameter LX 3.9 cm 3.0 - 4.0 / 2.7 - 3.8 cm LA Volume 84.7 cm??? 18 - 58 / 22 - 52 cm??? LA Volume Index 32.2 cm???/m??? 16 - 28 cm???/m??? M-MODE Aortic Root Diameter MM 3.8 cm AV Cusp Separation MM 2.1 cm DOPPLER AV Peak Velocity 129.3 cm/s AV Peak Gradient 6.7 mmHg MV Area PHT 3.7 cm??? Mitral E Point Velocity 88.2 cm/s Mitral A Point Velocity 95.7 cm/s Mitral E to A Ratio 0.9 MV Deceleration Time 204.3 ms FINDINGS Left Ventricle Left ventricular ejection fraction is estimated at 60-65 %. Left ventricular cavity size normal. Moderately increased septal wall thickness. Normal left ventricular wall motion. Right Ventricle Mild right ventricular dilatation. Unable to estimate the right ventricular systolic pressure. Right Atrium Normal right atrial size. No right atrial thrombus or mass seen. Left Atrium Mildly increased left atrial volume. Mildly increased left atrial area. No left atrial thrombus or mass present. Mitral Valve Structurally normal mitral valve. No mitral stenosis, regurgitation or prolapse. Aortic Valve Trileaflet aortic valve. No aortic valve stenosis or regurgitation. Tricuspid Valve Structurally normal tricuspid valve. No tricuspid stenosis, regurgitation or prolapse. Pulmonic Valve Structurally normal pulmonic valve. No pulmonic regurgitation. Pericardium No pericardial or pleural effusion. Aorta Mild aortic dilatation at the level of the sinuses of valsalva 38 mm CONCLUSIONS Normal LV function Mildly dilated aortic root Previewed by: Dr. Be Johnston MD (Electronically Signed) Final Date: 21 February 2024 10:22
--- NOTE | 2024-02-21 17:13 | CA ---
Stress Echo Report Quinten Francis Age: 38 Gender: M : 1985 Exam Date: 02/21/2024 12:07 Exam Location: [place] [facility] Ht (in): 73 Wt (lb): 285 Ordering Physician: Antonietta Betts Referring Physician: [id number] Beef Cattle Farmer: Kizzy vIey RDCS Technologist Procedure CPT: Indication: Chest Pain ICD-9 Codes: Rhythm: Patient History: CHEST PAIN, DIFFICULTY IN BREATHING, PALPITATIONS, HTN, FAMILY HX OF HEART DISEASE, ASTHMA Cardiac Medications: Medications in past 24 hours: Contrast: Definity Stress Results Protocol: Steven Total dose(mL): 3 Exercise Duration (min:sec): 7:[address] Depression (mm): Angina Score: Cunningham Score: METS: 9.3 Resting HR: 113 Resting BP: 158 / 98 Peak HR: 154 Peak BP: 215 / 100 Max Predicted HR: 180 86 % Max Predicted HR Target HR: 153 Double Product: [id number] Stress Summary: BP Response: Reason for Termination: MAX EXERTION/TARGET HR Cardiac Symptoms: DIFFICULTY IN BREATHING ECG Analysis Resting ECG: Normal sinus rhythm normal axis normal intervals Stress ECG: Patient exercised on Steven protocol for 7 minutes and 40 seconds achieving 85% of predicted maximal heart rate without chest pain. At peak exercise there was [address] segment depression noted in inferolateral leads Arrhythmia: Echo Analysis Resting Echo: Technically suboptimal study. LV function is normal no obvious baseline wall motion abnormalities Peak Echo Analysis: Technically suboptimal contrast agent was used to enhance endocardial definition no obvious exercise-induced wall motion abnormalities MEASUREMENTS (Male/Female) Normal Values CONCLUSIONS Above average exercise tolerance Abnormal stress test by EKG criteria Technically suboptimal echo images without any obvious wall motion abnormalities Dr. Be Johnston MD (Electronically Signed) Final Date: 21 February 2024 17:13
--- NOTE | 2024-02-22 08:58 | P.HPIM ---
History of Present Illness H&P Date: 02/21/24 Chief Complaint: Chest pain Patient is a 38-year-old male with known history of hypertension, asthma presents to ER with complaints of chest pain. Patient states that he started having chest pain with dizziness and palpitations and not feeling well. Patient felt like chest heaviness and also cold and clammy skin. On admission blood pressure 205/124 and pulse 109, respiration 20 and pulse ox 98% on room air. Patient states that he had recent upper respiratory infection and was seen at [facility] on Tuesday. Patient was given prednisone daily for 5 days. He was having cough without any sputum production. Denies any fever or chills. No abdominal pain. No diarrhea. Denies recent travel or sick contacts. EKG showed sinus tachycardia with heart rate 101 Chest x-ray showed no acute cardiopulmonary process Laboratory showed WBC 16.2 hemoglobin 14.5 and platelets 281 sodium 135 potassium 4.5 chloride 97 bicarb is 26 BUN 22 and creatinine 1.04 and blood sugar 302 and A1c 8.6 and ALT 59 AST 27 alk phos 22 and troponin x 3 negative D- dimer is 0.3 lipase 59 Influenza AB RSV and COVID-19 PCR not detected Review of Systems Constitutional: Patient denies any fever or chills . No generalized weakness or weight loss. Abdomen: Patient denied nausea vomiting and diarrhea and abdominal pain. Cardiovascular: Patient denies any chest pain or short of breath no palpitations. Respiratory: patient denied any cough or sputum production. No shortness of breath Neurologic: Patient denied any numbness or tingling. no headache. Musculoskeletal: Patient denies any complaints of joint swelling or deformity. Skin: Negative Psychiatric: Negative Endocrine: No heat or cold intolerance. No recent weight gain. Genitourinary: No dysuria or hematuria. All other 14 point ROS negative except the above Past Medical History Past Medical History: Asthma, Hypertension Additional Past Medical History / Comment(s): BRONCHITIS History of Any Multi-Drug Resistant Organisms: None Reported Past Surgical History: Hernia Repair Past Anesthesia/Blood Transfusion Reactions: No Reported Reaction Past Psychological History: No Psychological Hx Reported Smoking Status: Never smoker Past Alcohol Use History: Occasional Past Drug Use History: None Reported - Past Family History Father Family Medical History: Congestive Heart Failure (CHF) Additional Family Medical History / Comment(s): at 36 uncertain cause, caridac complication related Medications and Allergies Home Medications Medication Instructions Recorded Confirmed Type Irbesartan [Avapro] 150 mg PO BID 02/20/24 02/20/24 History Promethazine/Dextromethorphan 5 ml PO Q4H PRN 02/20/24 02/20/24 History [Promethazine-Dm 6.25-15 mg/5Ml] Triamterene/Hydrochlorothiazid 1 tab PO DAILY 02/20/24 02/20/24 History [Triamterene-Hctz 37.5-25 mg Tb] amLODIPine [Norvasc] 10 mg PO DAILY #30 tab 02/21/24 Rx metFORMIN HCL [Glucophage] 500 mg PO BID #60 tab 02/21/24 Rx Allergies Allergy/AdvReac Type Severity Reaction Status Date / Time Penicillins Allergy Unknown Verified 02/20/24 16:25 Childhood Physical Exam Vitals: Vital Signs Temp Pulse Pulse Resp BP BP Pulse Ox 02/21/24 12:00 151/98 98 02/21/24 11:33 92 02/21/24 11:23 96 02/21/24 07:00 97.6 F 81 17 158/93 94 L 02/21/24 01:57 88 02/21/24 01:09 97.4 F L 87 18 179/110 95 02/20/24 21:51 97.9 F 96 18 159/95 94 L 02/20/24 21:03 101 H 20 166/99 95 02/20/24 20:34 100 19 164/111 96 02/20/24 17:10 89 18 159/95 97 02/20/24 15:18 99 20 153/102 98 Intake and Output 02/20/24 02/21/24 02/21/24 22:59 06:59 14:59 Intake Total 240 480 Balance 240 480 Intake: Oral 240 480 Other: # Voids 1 3 Weight 129.274 kg PHYSICAL EXAMINATION: Patient is lying in the bed comfortably, no acute distress, awake alert and oriented.. HEENT: Normocephalic. Neck is supple. Pupils reactive. Nostrils clear. Oral cavity is moist. Neck reveals no JVD, carotid bruits, or thyromegaly. CHEST EXAMINATION: Trachea is central. Symmetrical expansion. Lung ahmadi clear to auscultation and percussion. CARDIAC: Normal S1, S2 with no gallops. No murmurs ABDOMEN: Soft. Bowel sounds normal. No organomegaly. No abdominal bruits. Extremities: reveal no edema. No clubbing or cyanosis Neurologically awake, alert, oriented x3 with well-coordinated movements. No focal deficits noted Skin: No rash or skin lesions. Psychiatric: Coperative. Nonsuicidal Musculoskeletal: No joint swelling or deformity. Normal range of motion. Results CBC & Chem 7: 02/21/24 04:30 02/21/24 04:30 Labs: Abnormal Lab Results - Last 24 Hours (Table) 02/20/24 02/21/24 02/21/24 Range/Units 13:59 04:30 04:30 WBC 13.42 H (4.50-10.00) X 10*3/uL Immature Gran # 0.09 H (0.00-0.04) X 10*3/uL Neutrophils # 10.74 H (1.80-7.70) X 10*3/uL Eosinophils # 0.02 L (0.04-0.35) X 10*3/uL BUN/Creatinine Ratio 20.10 H (12.00-20.00) Ratio Glucose 281 H (70-110) mg/dL Hemoglobin A1c 8.6 H (<=6.0) % ALT 55 H (10-49) U/L Thrombosis Risk Factor Assmnt - DVT/VTE Prophylaxis DVT/VTE Prophylaxis: Pharmacologic Prophylaxis ordered - Choose All That Apply Any of the Below Risk Factors Present?: Yes Each Factor Represents 1 point: Obesity (BMI >25) Other Risk Factors: No Other congenital or acquired thrombophilia - If yes, enter type in comment: No Thrombosis Risk Factor Assessment Total Risk Factor Score: 1 Thrombosis Risk Factor Assessment Level: Low Risk Assessment and Plan Assessment: Atypical chest pain and dizziness. Rule out ACS Hypertensive urgency Hyperglycemia/new onset diabetes likely type II A1c 8.6 Recent URI-like symptoms and significant cough. Patient is currently on steroid course for 5 days Leukocytosis likely due to prednisone Obese with a BMI 37.6 DVT prophylaxis heparin subcu Plan: Patient will be continued on telemonitoring. Serial EKG and troponin x 3 negative. Patient was started back on home blood pressure medications Dyazide and losartan. Amlodipine 10 mg daily was added and continue to titrate blood pressure medications. Continue with DuoNebs as needed.. Prednisone has been discontinued. Patient was seen by cardiology and recommended stress test. Continue to follow closely. Time with Patient: Greater than 30
[2024-02-22] MEDS: HEPARIN SODIUM,PORCINE 5,000 UNIT/ML 1 ML VIAL SQ SCH (09:17)
[2024-02-22] MEDS ORDERED: NITROGLYCERIN SL TABS 0.4 MG TAB SUBLINGUAL PRN (09:48)
[2024-02-22] MEDS ORDERED: ALPRAZolam 0.5 MG TAB PO PRN (09:48)
[2024-02-22] MEDS ORDERED: ALPRAZolam 0.25 MG TAB PO PRN (09:48)
[2024-02-22] MEDS: ASPIRIN 325 MG TAB PO STA (10:40)
[2024-02-22] MEDS: ATORVASTATIN 80 MG TAB PO STA (10:40)
[2024-02-22] MEDS: IV FLUID CONTINUATION 1,000 ML IV ONE (11:50)
[2024-02-22] MEDS: MIDAZOLAM 2 MG/2 ML VIAL IVP ONE (12:04)
[2024-02-22] MEDS: LIDOCAINE 1% INJ 10MG/ML (20 ML MDV) SQ ONE (12:04)
[2024-02-22] MEDS: fentaNYL (PF) 50 MCG/1 ML VIAL IVP ONE (12:04)
[2024-02-22] MEDS: VERAPAMIL SYRINGE (5 MG/10 ML) INTRAARTER ONE (12:10)
[2024-02-22] MEDS: HEPARIN SODIUM 1,000 UN/ML (10ML VL) IV ONE (12:16)
[2024-02-22] MEDS: SODIUM CHLORIDE 0.9% 1,000 ML IV SCH (12:18)
[2024-02-22] MEDS: IOPAMIDOL-370 100ML BTL INJ ONE (13:06)
[2024-02-22] MEDS: HEPARIN SODIUM,PORCINE (1 ML) 2,500 UNIT in SODIUM CHLORIDE 0.9% 250 ML IRRIGATION PRN (13:06)
[2024-02-22] MEDS: HEPARIN SODIUM,PORCINE 10,000 UNIT in SODIUM CHLORIDE 0.9% 1,000 ML IRRIGATION PRN (13:06)
--- NOTE | 2024-02-22 13:10 | CC ---
CARDIAC CATHETERIZATION REPORT INDICATIONS: A 38-year-old gentleman who presented to hospital with symptoms of chest pain and ruled out for myocardial infarction, had a stress test where he had EKG changes on treadmill that could be risk from hypertension, but the echo images were suboptimal. Hence, Dr. Rodriguez, who evaluated the patient this morning, advised him to undergo cardiac catheterization for definitive diagnosis. PROCEDURE NOTE: After obtaining informed consent, left heart catheterization and coronary angiogram were performed via the right radial artery using standard Sejal catheters. The patient tolerated the procedure well without any obvious immediate complications. The patient received moderate conscious sedation. Total sedation time was 22 minutes. Right radial artery access was obtained using Seldinger technique. A 6-Urdu sheath was placed. Catheters and wires were floated into the ascending aorta under fluoroscopic guidance. The patient received verapamil and heparin per protocol. FINDINGS: 1. Hemodynamics: Left ventricular end-diastolic pressure is 13 mmHg. There is no significant gradient across the aortic valve. 2. Left ventriculogram: Left ventriculogram was not performed. 3. Angiographic data: a.Right coronary artery: Right coronary artery is a large dominant vessel that shows a moderate atherosclerotic plaque in its proximal portion. The PDA shows a focal 80% stenosis. Circumflex coronary artery shows mild nonobstructive disease. LAD shows a 30% to 40% mid LAD stenosis. CONCLUSIONS: An 80% stenosis involving PDA, 40% stenosis involving proximal right coronary artery and mild nonobstructive disease involving both LAD and circumflex coronary artery. PLAN: I am going to review angiographic data with Dr. Mckeon, the on-call conference service coordinator, and decide on whether to perform angioplasty of the PDA or to treat him with optimal medical therapy. MMODL / IJN: [id number] /
[2024-02-22] MEDS ORDERED: RX INFO: IV CONTRAST WAS GIVEN 1 EACH MISC MISCELLANE PRN (13:34)
--- NOTE | 2024-02-22 13:45 | P.PN ---
Subjective Progress Note Date: 02/22/24 Consult reason: chest pain History of present illness: This is a 38-year-old male patient with past medical history of hypertension, asthma. We have been asked to evaluate the patient for chest pain. Patient presented to the hospital due to chest pain, palpitations, dizziness and in general just not feeling well. Patient presented with blood pressure of 205/124. Last evening, patient only received losartan 50 mg. Blood pressure 159/118, heart rate 81, pulse ox 94% on room air. EKG: Sinus tachycardia 101 bpm Chest x-ray: No acute process Laboratory studies: WBC initially 16.2 now 13.4, hemoglobin 14.2. Electrolytes and renal function are normal. Glucose 302. Troponins negative x 3. Influenza A, influenza B, RSV, COVID-19 not detected. Home cardiac medications: 01/22 Yesterday, patient underwent stress echocardiogram revealed above average exercise tolerance, abnormal stress test by EKG criteria, technically suboptimal echo images without any obvious wall motion abnormalities. Echocardiogram reveals EF of 60 to 65%, mildly dilated aortic root. Discussed the results of the testing with the patient and recommend that patient undergo cardiac catheterization. Patient discussed with his and agreeable to move forward today. Blood pressure readings are somewhat improved today 146/95, heart rate 98, pulse ox 94% on room air. Physical examination: Gen: This is a 38-year-old male in no acute distress VS: reviewed HEENT: Head is atraumatic, normocephalic. Pupils equal, round. Sclerae is anicteric. NECK: Supple. No JVD. LUNGS: Clear to auscultation. No wheezes or rhonchi. No intercostal retractions. HEART: Regular rate and rhythm. No murmur. ABDOMEN: Soft No tenderness. EXTREMITIES: No pedal edema. No calf tenderness. NEUROLOGICAL: Patient is awake, alert and oriented x3. Assessment: Atypical chest pain, acute coronary syndrome ruled out Abnormal stress test, rule out coronary artery disease Chest pain, dizziness possibly due to uncontrolled hypertension Uncontrolled hypertension Diabetes new diagnosis Plan: Continue current cardiac medications: Amlodipine 10 mg daily, losartan 50 mg twice daily Schedule patient for cardiac catheterization today with Dr. Kerry Johnston Monitor blood pressure closely Further recommendations to follow based upon clinical course Nurse practitioner note has been reviewed, I agree with documented findings and plan of care. Patient was seen and examined. Objective - Vital Signs Vital signs: Vital Signs Temp 98.0 F 02/22/24 07:00 Pulse 98 02/22/24 07:00 Resp 17 02/22/24 07:00 BP 146/95 02/22/24 07:00 Pulse Ox 94 L 02/22/24 07:00 FiO2 Intake & Output 02/21/24 02/22/24 02/22/24 18:59 06:59 18:59 Intake Total 118 Balance 118 Intake: Oral 118 Other: # Voids 3 3 - Labs CBC & Chem 7: 02/21/24 04:30 02/21/24 04:30 Labs: Microbiology - Last 24 Hours (Table) 02/21/24 01:00 Gram Stain - Preliminary Sputum
[2024-02-22] MEDS: METOPROLOL SUCCINATE (ER) 25 MG TAB.ER.24H PO SCH (14:59)
--- NOTE | 2024-02-23 05:07 | P.PN ---
Subjective Progress Note Date: 02/22/24 Patient is a 38-year-old male with known history of hypertension, asthma presents to ER with complaints of chest pain. Patient states that he started having chest pain with dizziness and palpitations and not feeling well. Patient felt like chest heaviness and also cold and clammy skin. On admission blood pressure 205/124 and pulse 109, respiration 20 and pulse ox 98% on room air. Patient states that he had recent upper respiratory infection and was seen at [facility] on Tuesday. Patient was given prednisone daily for 5 days. He was having cough without any sputum production. Denies any fever or chills. No abdominal pain. No diarrhea. Denies recent travel or sick contacts. EKG showed sinus tachycardia with heart rate 101 Chest x-ray showed no acute cardiopulmonary process Laboratory showed WBC 16.2 hemoglobin 14.5 and platelets 281 sodium 135 potassium 4.5 chloride 97 bicarb is 26 BUN 22 and creatinine 1.04 and blood sugar 302 and A1c 8.6 and ALT 59 AST 27 alk phos 22 and troponin x 3 negative D- dimer is 0.3 lipase 59 Influenza AB RSV and COVID-19 PCR not detected 02/22/2024 Patient is seen and evaluated in follow-up today being followed by cardiology maintained on telemetry monitoring. Patient underwent stress test with some abnormal findings and cardiology recommending cardiac catheterization. Initially patient wanted this done outpatient although agreeable with the car diac catheterization can occur today. Will await cardiology report and further recommendations. Review of systems: Constitutional: No reports of fatigue, fever, or chills Cardiovascular: No reports of chest pain or palpitations Respiratory: No reports of shortness of breath or cough GI: No reports of nausea, vomiting, or diarrhea : No reports of dysuria or retention Neurovascular: No reports of weakness or numbness All medications have been reviewed PHYSICAL EXAMINATION: Patient is sitting up in the chair, no acute distress, awake alert and oriented.. Well-developed, obese HEENT: Normocephalic. Neck is supple. Pupils reactive. Nostrils clear. Oral cavity is moist. Neck reveals no JVD, carotid bruits, or thyromegaly. CHEST EXAMINATION: Trachea is central. Symmetrical expansion. Lung ahmadi clear to auscultation and percussion. CARDIAC: Normal S1, S2 with no gallops. No murmurs ABDOMEN: Soft. Obese. Bowel sounds normal. No organomegaly. No abdominal bruits. Extremities: reveal no edema. No clubbing or cyanosis Neurologically awake, alert, oriented x3 with well-coordinated movements. No focal deficits noted Skin: No rash or skin lesions. Psychiatric: Cooperative. Non-suicidal Musculoskeletal: No joint swelling or deformity. Normal range of motion. Assessment: Atypical chest pain and dizziness. Rule out ACS Hypertensive urgency, improving Hyperglycemia/new onset diabetes likely type II A1c 8.6 Recent URI-like symptoms and significant cough. Patient is currently on steroid course for 5 days Leukocytosis likely due to prednisone Obesity with a BMI 37.6 GI prophylaxis DVT prophylaxis heparin subcu Full code Plan: Patient is currently continued on telemonitoring. Cardiology following and underwent suboptimal stress testing recommending cardiac catheterization and patient is agreeable if can be performed today. Serial EKG and troponin x 3 negative. Patient was started back on home blood pressure medications Dyazide and losartan. Amlodipine 10 mg daily added and continue to titrate blood pressure medications. Continue with DuoNebs as needed.. Prednisone has been discontinued. Currently awaiting cardiac catheterization and cardiology is also ordered renal artery study and patient would like outpatient. Will discuss further with cardiology as patient would like to go home. Patient is denying any chest pain at this time. Awaiting cardiac catheterization report The impression and plan of care has been dictated by Roberta Abdalla, Nurse Practitioner as directed. Dr. Abebe MD I have performed a history and examination and MDM of this patient, discussed the same with the dictator, and agree with the dictator's assessment and plan as written ,documented as a scribe. Based on total visit time, I have performed more than 50% of the visit. Objective - Vital Signs Vital signs: Vital Signs Temp 98.0 F 02/22/24 07:00 Pulse 98 02/22/24 07:00 Resp 17 02/22/24 07:00 BP 146/95 02/22/24 07:00 Pulse Ox 94 L 02/22/24 07:00 FiO2 Intake & Output 02/21/24 02/22/24 02/22/24 18:59 06:59 18:59 Intake Total 118 Balance 118 Intake: Oral 118 Other: # Voids 3 3 - Labs CBC & Chem 7: 02/21/24 04:30 02/21/24 04:30
[2024-02-23 07:43] VITALS: BP 133/73; RESP 17; TEMP 97.8
[2024-02-23 08:32] LABS: Chol/HDL Ratio 4.83 Ratio; LDL Cholesterol,Calculated 144.7 mg/dL (0.0-131.0)
--- NOTE | 2024-02-23 08:42 | US ---
EXAMINATION TYPE: US renal artery duplex complet DATE OF EXAM: 02/23/2024 COMPARISON: NONE CLINICAL INDICATION: Male, 38 years old with history of uncontrolled htn r/o MANFRED; HTN TECHNIQUE: Grayscale, color Doppler and spectral Doppler imaging of the bilateral renal arteries and kidneys. FINDINGS: MEASUREMENTS: RENAL SIZE: Right Kidney: 11.3 x 5.0 x4.0 cm Left Kidney: 12.3 x 6.1 x 5.4 cm Right Kidney: No hydronephrosis or lesions seen Left Kidney: No hydronephrosis or lesions seen Abd Aorta: Limited due to bowel gas. 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 [facility], , 02/23/2024 8:40 AM
[2024-02-23] MEDS: METOPROLOL SUCCINATE (ER) 50 MG TAB.ER.24H PO SCH (08:51)
[2024-02-23] MEDS: ASPIRIN 81 MG PO SCH (08:51)
[2024-02-23] MEDS: ISOSORBIDE MONONITRATE ER 30 MG TAB.ER.24H PO SCH (08:51)
[2024-02-23 08:52] VITALS: PULSE 72
--- NOTE | 2024-02-23 09:09 | P.PN ---
Subjective Progress Note Date: 02/23/24 Consult reason: chest pain History of present illness: This is a 38-year-old male patient with past medical history of hypertension, asthma. We have been asked to evaluate the patient for chest pain. Patient presented to the hospital due to chest pain, palpitations, dizziness and in general just not feeling well. Patient presented with blood pressure of 205/124. Last evening, patient only received losartan 50 mg. Blood pressure 159/118, heart rate 81, pulse ox 94% on room air. EKG: Sinus tachycardia 101 bpm Chest x-ray: No acute process Laboratory studies: WBC initially 16.2 now 13.4, hemoglobin 14.2. Electrolytes and renal function are normal. Glucose 302. Troponins negative x 3. Influenza A, influenza B, RSV, COVID-19 not detected. Home cardiac medications: 02/21 Yesterday, patient underwent stress echocardiogram revealed above average exercise tolerance, abnormal stress test by EKG criteria, technically suboptimal echo images without any obvious wall motion abnormalities. Echocardiogram reveals EF of 60 to 65%, mildly dilated aortic root. Discussed the results of the testing with the patient and recommend that patient undergo cardiac catheterization. Patient discussed with his and agreeable to move forward today. Blood pressure readings are somewhat improved today 146/95, heart rate 98, pulse ox 94% on room air. 02/22 Yesterday, patient underwent cardiac catheterization which revealed 80% stenosis involving the PDA, 40% stenosis involving the proximal right coronary artery and mild nonobstructive disease involving both LAD and circumflex. Plan is for medical management. Yesterday, blood pressure was still elevated patient was started on Toprol XL. Renal artery duplex revealed no renal artery stenosis. Patient denies having any chest pain today. Blood pressure is improving 133/73, heart rate is in the 70s and 80s, pulse ox 94% on room air Physical examination: Gen: This is a 38-year-old male in no acute distress VS: reviewed HEENT: Head is atraumatic, normocephalic. Pupils equal, round. Sclerae is anicteric. NECK: Supple. No JVD. LUNGS: Clear to auscultation. No wheezes or rhonchi. No intercostal retractions. HEART: Regular rate and rhythm. No murmur. ABDOMEN: Soft No tenderness. EXTREMITIES: No pedal edema. No calf tenderness. NEUROLOGICAL: Patient is awake, alert and oriented x3. Assessment: Atypical chest pain, acute coronary syndrome ruled out Abnormal stress test, status post cardiac catheterization with 80% stenosis of the PDA, 40% in the proximal right coronary artery and plan for medical management Chest pain, dizziness possibly due to uncontrolled hypertension Uncontrolled hypertension Diabetes new diagnosis Plan: Continue current cardiac medications: Amlodipine 10 mg daily, losartan (irbesartan) 50 mg twice daily, triamterene hydrochlorothiazide 1 daily Start patient on Imdur 30 mg daily Increase Toprol XL to 50 mg daily Patient is cleared for discharge from cardiology May follow-up in the office with Dr. Kerry Johnston in 2 weeks. Nurse practitioner note has been reviewed, I agree with documented findings and plan of care. Patient was seen and examined. Objective - Vital Signs Vital signs: Vital Signs Temp 97.8 F 02/23/24 07:05 Pulse 70 02/23/24 07:05 Resp 17 02/23/24 07:05 BP 133/73 02/23/24 07:05 Pulse Ox 94 L 02/23/24 07:05 FiO2 Intake & Output 02/22/24 02/23/24 02/23/24 18:59 06:59 18:59 Intake Total 418 500 Balance 418 500 Intake: IV 300 Oral 118 500 Other: Voiding Method Toilet # Voids 2 2 - Labs CBC & Chem 7: 02/21/24 04:30 02/21/24 04:30 Labs: Microbiology - Last 24 Hours (Table) 02/21/24 01:00 Gram Stain - Preliminary Sputum Sputum Culture - Preliminary
[2024-02-23] MEDS ORDERED: ATORVASTATIN 40 MG TAB PO SCH (21:00)
[2024-02-24 11:56] LABS: Glucose,Whole Blood 329 mg/dL (70-110)
[2024-02-24 11:56] LABS: Glucose,Whole Blood 201 mg/dL (70-110)
[2024-02-24 11:56] LABS: Glucose,Whole Blood 225 mg/dL (70-110)
[2024-02-24 11:57] LABS: Glucose,Whole Blood 195 mg/dL (70-110)
[2024-02-24 11:57] LABS: Glucose,Whole Blood 302 mg/dL (70-110)
[2024-02-24 11:57] LABS: Glucose,Whole Blood 160 mg/dL (70-110)
[2024-02-24 11:57] LABS: Glucose,Whole Blood 194 mg/dL (70-110)
[2024-02-24 11:57] LABS: Glucose,Whole Blood 284 mg/dL (70-110)
[2024-02-24 11:58] LABS: Glucose,Whole Blood 136 mg/dL (70-110)
[2024-02-24 11:58] LABS: Glucose,Whole Blood 219 mg/dL (70-110)
[2024-02-24 11:58] LABS: Glucose,Whole Blood 157 mg/dL (70-110)
[2024-02-24 11:58] LABS: Glucose,Whole Blood 166 mg/dL (70-110)
--- NOTE | 2024-02-28 06:21 | P.DS ---
Providers Date of admission: 02/20/24 16:31 Expected date of discharge: 02/23/24 Attending physician: Concha Culver Consults: 02/20/24 16:28 Consult Physician Urgent Consulting Provider: [facility] Consult Reason/Comments: acute chest pain Do you want consulting provider notified?: Yes Primary care physician: Ari Caldwell Hospital Course: Final diagnosis Atypical chest pain and dizziness. Ruled out ACS abnormal stress test status post cardiac catheterization today showing 80% stenosis involving the PDA, 40% stenosis involving the proximal right coronary artery and mild nonobstructive disease involving both LAD and circumflex Hypertensive urgency, improving Hyperglycemia/new onset diabetes likely type II A1c 8.6 Recent URI-like symptoms and significant cough. Patient is currently on steroid course for 5 days Leukocytosis likely due to prednisone Obesity with a BMI 37.6 GI prophylaxis DVT prophylaxis heparin subcu Full code Discharge disposition Patient is being discharged in a stable condition with guarded prognosis to home. Patient will follow-up with Dr. Caldwell in the outpatient setting upon discharge. Patient is to continue with current medications and close outpatient follow-up with cardiology as scheduled. Total time taken is greater than 35 minutes. Hospital course This is a 38-year-old male who was recently admitted with chest pain being closely monitored. Troponins were negative ACS ruled out and patient underwent stress testing which was abnormal with cardiology following recommending cardiac catheterization. Cardiac catheterization revealed an 80% stenosis of the PDA along with 40% stenosis of the proximal right RCA and mild nonobstructive disease involving both LAD and circumflex. Cardiology recommends maximizing m edical management with close outpatient follow-up with Dr. Johnston in 1 to 2 weeks. Renal artery duplex was also done and within normal limits. Patient is a new onset diabetic with a hemoglobin A1c of 8.6 and will be given a glucometer and started on metformin. Patient instructed to follow-up with primary care provider on discharge and recommend diet modification and lifestyle modifications. Patient has been cleared for discharge. Please refer to other consultation note for further HPI. Currently no reports of chest pain, shortness of breath, or palpitations. Patient is afebrile. No reports of nausea or vomiting and patient is tolerating diet. Patient will be discharged home today. 38-year-old male who is awake, alert and oriented x 3, well-developed, well- nourished, obese Physical exam: Gen: This is a [ ] HEENT: Head is atraumatic, normocephalic. Pupils equal, round. Sclerae is anicteric. NECK: Supple. No JVD. No lymphadenopathy. No thyromegaly. LUNGS: Clear to auscultation. No wheezes or rhonchi. No intercostal retractions. HEART: Regular rate and rhythm. No murmur. ABDOMEN: Soft. Obese. Bowel sounds are present. No masses. No tenderness. EXTREMITIES: No pedal edema. No calf tenderness. NEUROLOGICAL: Patient is awake, alert and oriented x3. Cranial nerves 2 through 12 are grossly intact. Please refer to medication reconciliation sheet for a list of medications. The impression and plan of care has been dictated by Roberta Abdalla, Nurse Practitioner as directed. Dr. Abebe MD I have performed a history and examination and MDM of this patient, discussed the same with the dictator, and agree with the dictator's assessment and plan as written ,documented as a scribe. Based on total visit time, I have performed more than 50% of the visit. Patient Condition at Discharge: Stable Plan - Discharge Summary Discharge Rx Participant: Yes New Discharge Prescriptions: New metFORMIN HCL [Glucophage] 500 mg PO BID #60 tab amLODIPine [Norvasc] 10 mg PO DAILY #30 tab Losartan [Cozaar] 50 mg PO BID #60 tab Metoprolol Succinate (ER) [Toprol XL] 50 mg PO DAILY #30 tab Aspirin 81 mg PO DAILY #30 tab Isosorbide Mononitrate ER [Imdur] 30 mg PO DAILY #30 tab Atorvastatin [Lipitor] 40 mg PO HS #30 tab Continue Promethazine/Dextromethorphan [Promethazine-Dm 6.25-15 mg/5Ml] 5 ml PO Q4H PRN PRN Reason: Cough Triamterene/Hydrochlorothiazid [Triamterene-Hctz 37.5-25 mg Tb] 1 tab PO DAILY Discontinued predniSONE 40 mg PO DAILY Irbesartan [Avapro] 150 mg PO BID Discharge Medication List Promethazine/Dextromethorphan [Promethazine-Dm 6.25-15 mg/5Ml] 5 ml PO Q4H PRN 02/20/24 [History] Triamterene/Hydrochlorothiazid [Triamterene-Hctz 37.5-25 mg Tb] 1 tab PO DAILY 02/20/24 [History] amLODIPine [Norvasc] 10 mg PO DAILY #30 tab 02/21/24 [Rx] metFORMIN HCL [Glucophage] 500 mg PO BID #60 tab 02/21/24 [Rx] Aspirin 81 mg PO DAILY #30 tab 02/23/24 [Rx] Atorvastatin [Lipitor] 40 mg PO HS #30 tab 02/23/24 [Rx] Isosorbide Mononitrate ER [Imdur] 30 mg PO DAILY #30 tab 02/23/24 [Rx] Losartan [Cozaar] 50 mg PO BID #60 tab 02/23/24 [Rx] Metoprolol Succinate (ER) [Toprol XL] 50 mg PO DAILY #30 tab 02/23/24 [Rx] Follow up Appointment(s)/Referral(s): Ari Caldwell [Primary Care Provider] - 1-2 days Be Johnston MD [STAFF PHYSICIAN] - 03/08/24 3:45 pm Activity/Diet/Wound Care/Special Instructions: Activity limited until follow-up Follow-up with primary care provider on discharge Follow-up with cardiology in 1 to 2 weeks as discussed Continue taking medications as prescribed Monitor blood pressure with daily readings and keep a diary for primary as well as cardiology follow-up Continue monitoring blood sugars and keep a diary of all blood sugar readings for primary care follow-up Continue heart healthy consistent carb diet Discharge Disposition: HOME SELF-CARE
== END 2024-02-23 13:00 | disposition home or self-care (01) | DRG 287 ==
LOC: EC 13:25 → 6NMEDSUR 16:30 → OBSVTOIN 16:31 → 6NMEDSUR 20:48
PROVIDERS: ADMIT Hospitalist; ATTEND Hospitalist
PROC: 4A023N7 Measurement of Cardiac Sampling and Pressure, Left Heart, Percutaneous Approach (ICD-10-PCS; 2024-02-22)
PROC: B2111ZZ Fluoroscopy of Multiple Coronary Arteries using Low Osmolar Contrast (ICD-10-PCS; principal; 2024-02-22 12:00)
DX: I16.0 Hypertensive urgency (principal); E11.65 Type 2 diabetes mellitus with hyperglycemia; E66.9 Obesity, unspecified; J45.909 Unspecified asthma, uncomplicated; D72.828 Other elevated white blood cell count; I10 Essential (primary) hypertension; T38.0X5A Adverse effect of glucocorticoids and synthetic analogues, initial encounter; Z68.37 Body mass index [BMI] 37.0-37.9, adult; Z79.84 Long term (current) use of oral hypoglycemic drugs; Z79.899 Other long term (current) drug therapy; Z11.52 Encounter for screening for COVID-19; Z79.82 Long term (current) use of aspirin; Z82.49 Family history of ischemic heart disease and other diseases of the circulatory system
CPT/HCPCS: 36415; 71046; 80053; 80061; 83036; 83690; 83735; 84484; 85025; 85379; 85610; 85730; 87070; 87205; 87636; 93005; 93306; 93351; 93458; 93975; 94640; 96360; 99285